=== PATIENT | female | born 1990 | race Caucasian/White ===

== ENCOUNTER 2019-11-09 15:26 | Emergency (ER) | payer BC, OTHER ==
[2019-11-09 15:31] VITALS: BMI 27.4
--- NOTE | 2019-11-09 15:32 | PDOC ---
Rapid Medical Evaluation Time Seen by Provider: 11/09/19 15:30 Medical Evaluation: 11/09/19 15:30 HPI: Heavy periods and menstural cramping no bleeding LMP 10/24/19 PE: No gross deficits ORDERS: Discharge Disposition - Diagnosis Uterine cramping - Referrals - Patient Instructions - Post Discharge Activity
[2019-11-09] MEDS ORDERED: KETOROLAC TROMETHAMINE 30 MG/1 ML VIAL IM ONE (16:57)
[2019-11-09] MEDS ORDERED: ACETAMINOPHEN 325 MG TABLET (FP) PO ONE (16:57)
--- NOTE | 2019-11-09 17:00 | PDOC ---
History of Present Illness - General Chief Complaint: Pain Stated Complaint: ABD PAIN Time Seen by Provider: 11/09/19 15:30 - History of Present Illness Initial Comments: The pt is a 29F w/ no reported PMH who presents for evaluation of 6-8 months of pelvic cramping. She states that it is almost every day, is worse with menstruation, and is not exacerbated by anything she can identify. She has tried taking Ibuprofen for her pain with some relief. LMP 10/27/19 She denies fever/chills, chest pain, trouble breathing, N/V/C/D, dysuria, hematuria, vaginal bleeding/discharge, or change in sensation. 11/09/19 16:55 Past History - Past Medical History Allergies/Adverse Reactions: Allergies Allergy/AdvReac Type Severity Reaction Status Date / Time No Known Allergies Allergy Verified 11/09/19 15:32 Home Medications: Ambulatory Orders Cetirizine HCl [Zyrtec -] 10 mg PO DAILY 11/09/19 Fluticasone Prop 0.05% Nasal [Flonase -] 1 - 2 spray NS DAILY 11/09/19 COPD: No - Reproductive History Is Patient Now?: No - Psycho Social/Smoking Cessation Hx Smoking History: Never smoked Review of Systems - Review of Systems Able to Perform ROS?: Yes Comments:: GENERAL/CONSTITUTIONAL: No fever or chills. No weakness HEAD, EYES, EARS, NOSE AND THROAT: No change in vision. No change in hearing. No sore throat CARDIOVASCULAR: No chest pain or shortness of breath RESPIRATORY: Denies cough, hemoptysis GASTROINTESTINAL: No nausea, vomiting, diarrhea or constipation GENITOURINARY: No dysuria, frequency, or change in urination MUSCULOSKELETAL: No joint or muscle swelling or pain. No neck or back pain SKIN: No rash NEUROLOGIC: No headache, vertigo, loss of consciousness, or change in strength/ sensation ENDOCRINE: No increased thirst. No abnormal weight change HEMATOLOGIC/LYMPHATIC: No anemia, easy bleeding, or history of blood clots ALLERGIC/IMMUNOLOGIC: No hives or skin allergy 11/09/19 16:58 Is the patient limited [place] proficient: No *Physical Exam - Vital Signs Last Vital Signs Temp Pulse Resp BP Pulse Ox 98 F 95 H 18 160/87 100 11/09/19 15:29 11/09/19 15:29 11/09/19 15:29 11/09/19 15:29 11/09/19 15:29 - Physical Exam GENERAL: Awake, alert, and oriented to person/place/time, in no acute distress HEAD: No signs of trauma, normocephalic, atraumatic EYES: PERRLA, EOMI, sclera anicteric, conjunctiva clear ENT: Hearing grossly normal, nares patent, oropharynx clear without exudates. Moist mucosa LUNGS: No distress, speaks in full sentences, clear to auscultation bilaterally HEART: Regular rate and rhythm, normal S1 and S2, no murmurs appreciated, peripheral pulses normal and equal bilaterally ABDOMEN: Soft, mild suprapubic TTP w/o rebound or guarding, normoactive bowel sounds. No guarding, no rebound EXTREMITIES: Normal inspection, Normal range of motion, no edema. No clubbing or cyanosis NEUROLOGICAL: Cranial nerves II through XII grossly intact. Normal speech, normal gait, no focal sensorimotor deficits SKIN: Warm, Dry 11/09/19 16:58 ED Treatment Course - ADDITIONAL ORDERS Additional order review: Laboratory Results 11/09/19 15:40 Urine HCG, Qual Negative - RADIOLOGY Radiology Studies Ordered: Category Date Time Status TRANSVAGINAL ULTRASOUND US [US] Stat Ultrasound 11/09/19 16:01 Ordered Radiograph Interpretation: US/TRANSVAGINAL ULTRASOUND US 1.7 cm right ovarian and 2.3 cm left ovarian cysts are seen without obvious intraluminal debris/blood. Note is also made of several subcentimeter follicles bilaterally. No Doppler evidence of ovarian torsion, sensitivity 70%. A very small amount of free fluid is noted within the cul-de-sac. The uterus appears unremarkable in overall size. A nonspecific subtle 2.2 cm slightly echogenic spherical structure is seen within the uterine fundus ventrally probably representing a leiomyoma on a statistical basis. Endometrial thickness appears unremarkable measuring 0.6 cm. Impression: As noted above. 11/09/19 17:16 Medical Decision Making - Medical Decision Making The pt is a 29F w/ no reported PMH who presents for evaluation of 6-8 months of pelvic cramping. ED Course Upreg neg TVUS Tylenol and Toradol for pain 11/09/19 16:59 TVUS w/ uterine fibroid and b/l ovarian cysts Results discussed with pt Plan for D/C w/ OBGYN f/u Discharge instructions and return precautions given Patient in agreement and verbalized understanding Dispo: Home 11/09/19 17:17 Discharge - Discharge Information Problems reviewed: Yes Clinical Impression/Diagnosis: Uterine cramping Condition: Stable Disposition: HOME - Admission No - Follow up/Referral Referrals: Radha Perry MD [Primary Care Provider] - Jose Campos MD [Staff Physician] - - Patient Discharge Instructions Patient Printed Discharge Instructions: DI for Uterine Fibroids Additional Instructions: You were seen for evaluation of pelvic cramping. Your ultrasound was notable for uterine fibroids and two ovarian cysts. Take the print out of your ultrasound report to your OBGYN appointment. Review the handout provided at discharge. For pain you may take Tylenol 650mg every 6 hours and Ibuprofen 600mg every 6-8 hours, alternating them each time. Return to the Emergency Department if you develop fevers, chest pain, trouble breathing, worsening pain, change in sensation, worsening symptoms, or any new/ concerning symptoms. - Post Discharge Activity
[2019-11-09] MEDS ORDERED: ACETAMINOPHEN 325 MG TABLET (FP) ONE (17:03)
[2019-11-09] MEDS ORDERED: KETOROLAC TROMETHAMINE 30 MG/1 ML VIAL ONE (17:03)
--- NOTE | 2019-11-09 17:16 | PDOC ---
Attending Attestation - Resident Resident Name: Gabriel Mauro - ED Attending Attestation I have performed the following: I have examined & evaluated the patient, The case was reviewed & discussed with the resident, I agree w/resident's findings & plan, Exceptions are as noted - HPI HPI: 11/09/19 17:08 Ms. Martell is a 29-year-old female presenting to the emergency department with a complaint of pelvic pain. Patient states she has had this pain daily for the past 6+ months. Pain is described as cramping, and feels like a period except it is present even when she is not having a period She is taking motrin daily with little relief Pt has also noted heavy vaginal bleeding (the first 3 days of her period are very heavy) She was seen at [facility] and was told that her uterus was enlarged and she needed an ultrasound Patient attempted to get [facility] follow-up but could not Patient came to the emergency department for assessment 11/09/19 17:18 - Physicial Exam PE: 11/09/19 17:16 GENERAL: The patient is in no acute distress. ENT: Ears normal, nares patent, oropharynx clear without exudates. Moist mucous membranes. NECK: Normal range of motion, supple LUNGS: Breath sounds equal, clear to auscultation bilaterally. No wheezes, and no crackles. HEART:Regular rate and rhythm, normal S1 and S2 without murmur, rub or gallop. ABDOMEN: Soft, lower abdominal tenderness to palpation PELVIC: per Dr Mauro EXTREMITIES: Normal range of motion, no edema. NEUROLOGICAL: Cranial nerves II through XII grossly intact. Normal speech. No focal neurological deficits. SKIN: Warm, Dry, normal turgor, no rashes or lesions noted. - Medical Decision Making 11/09/19 17:17 29-year-old female presenting to the emergency department with a complaint of pelvic pain Patient has a history of metromenorrhagia Last menstrual period end of September We will do: hCG Transvaginal ultrasound hCG negative Ultrasound revealed Normal size uterus, possible intramuscular fibroid, ovaries normal with small cysts no evidence of torsion We will plan to discharge home Follow-up with [facility]
[2019-11-09 17:33] VITALS: BP 121/74; PULSE 86; TEMP 97.4
== END 2019-11-09 17:37 | disposition home or self-care (01) ==
LOC: JER 15:26
PROC: 3E0233Z Introduction of Anti-inflammatory into Muscle, Percutaneous Approach (ICD-10-PCS; principal; 2019-11-09)
DX: D25.9 Leiomyoma of uterus, unspecified (principal); N83.201 Unspecified ovarian cyst, right side; N83.202 Unspecified ovarian cyst, left side
CPT/HCPCS: 76830-TC; 84703; 99282-25

== ENCOUNTER 2021-10-16 14:43 | Emergency (ER) | payer BC, OTHER ==
[2021-10-16 15:15] VITALS: BP 120/69; PULSE 97; TEMP 98; BMI 31.7
[2021-10-16] MEDS ORDERED: LACTATED RINGERS SOLUTION 1000 ML INFUS.BAG IV ONE (17:03)
[2021-10-16 18:49] LABS: BASO % 0.8 % (0-2.0); EOS % 1.4 % (0-4.5); HEMATOCRIT 31.3 % (32.4-45.2); HEMOGLOBIN 10.3 GM/dL (10.7-15.3); LYMPH % 20.6 % (8-40); MCH 28.8 pg (25.7-33.7); MEAN CELL VOLUME 87.4 fl (80-96); MEAN PLT VOLUME 8.2 fl (7.5-11.1); MONO % 6.4 % (3.8-10.2); NEUT % 70.8 % (42.8-82.8); PLATELET COUNT 292 10^3/uL (134-434); RBC 3.59 M/mm3 (3.60-5.2); RDW 13.1 % (11.6-15.6); WHITE BLOOD COUNT 13.1 K/mm3 (4.0-10.0)
[2021-10-16 18:55] LABS: EPI CELLS 22 /uL (0-25.1); HYALINE CASTS 2 /uL (0-3.1); PH,URINE 8.5 (5.0-8.0); URINE APPEARANCE CLEAR; URINE BACTERIA 820 /uL (0-1359); URINE BILIRUBIN NEGATIVE (NEGATIVE); URINE COLOR YELLOW; URINE GLUCOSE (UA) NEGATIVE (NEGATIVE); URINE KETONE NEGATIVE (NEGATIVE); URINE LEUK ESTERASE 1+ (NEGATIVE); URINE NITRITE NEGATIVE (NEGATIVE); URINE PROTEIN NEGATIVE (NEGATIVE); URINE RBC 38 /uL (0-23.9); URINE UROBILINOGEN 0.2 mg/dL (0.2-1.0); URINE WBC 5 /uL (0-25.8)
== END 2021-10-16 19:18 | disposition home or self-care (01) ==
LOC: JER 14:43
DX: O99.012 Anemia complicating pregnancy, second trimester (principal); Z3A.28 28 weeks gestation of pregnancy
CPT/HCPCS: 36415; 76815-TC; 81003; 84702; 85025; 87086; 87804; 99284-25; C9803; U0003; U0005

== ENCOUNTER 2021-12-26 19:05 | Inpatient (IN) | payer BC, OTHER ==
[2021-12-26 20:06] VITALS: BMI 34.3
[2021-12-26 20:18] LABS: BASO % 0.5 % (0-2.0); EOS % 1.1 % (0-4.5); LYMPH % 20.3 % (8-40); MCH 30.4 pg (25.7-33.7); MCHC 34.2 g/dl (32.0-36.0); MEAN CELL VOLUME 88.9 fl (80-96); MEAN PLT VOLUME 8.6 fl (7.5-11.1); MONO % 7.3 % (3.8-10.2); NEUT % 70.8 % (42.8-82.8); PLATELET COUNT 215 10^3/uL (134-434); RBC 3.94 M/mm3 (3.60-5.2); RDW 18.6 % (11.6-15.6)
[2021-12-26 20:27] LABS: INR 1.12 (0.83-1.09); PROTHROMBIN TIME (PATIENT) 12.9 SEC (9.7-13.0)
[2021-12-26 20:30] LABS: ACTIVATED PTT 29.2 SECONDS (25.2-36.5)
[2021-12-26 20:34] LABS: BLOOD UREA NITROGEN 7.1 mg/dL (7-18); CALCIUM 8.6 mg/dL (8.5-10.1)
[2021-12-26 20:39] LABS: CREATININE 0.6 mg/dL (0.55-1.3)
[2021-12-26] MEDS ORDERED: CITRIC ACID/SODIUM CITRATE 30 ML UNIT-DOSE CUP PO ONE (21:00)
[2021-12-26] MEDS ORDERED: ONDANSETRON 4 MG/2 ML VIAL IVPUSH PRN (21:01)
[2021-12-26] MEDS ORDERED: morphine SULFATE/PF 1 MG/2 ML (2cc Syringe - QUVA) EP ONE (21:01)
[2021-12-26] MEDS ORDERED: ceFAZolin SODIUM 1 GM VIAL ONE (21:06)
[2021-12-26] MEDS ORDERED: OXYTOCIN 10 UNITS/ML VIAL ONE (21:58)
[2021-12-26 22:36] LABS: CORD HCO3 24.9 mmHg (20-29); CORD PCO2 54.4 mmHg (30-78); CORD pH 7.279 (7.14-7.44)
[2021-12-26 22:39] LABS: CORD BASE EXCESS -2.7 mmol/L (0-2); CORD HCO3 22.7 mmHg (20-29); CORD PCO2 41.5 mmHg (30-78); CORD pH 7.356 (7.14-7.44)
[2021-12-26] MEDS ORDERED: ELECTROLYTE-148 SOLN 1,000 ML IV SCH (23:00)
[2021-12-26] MEDS ORDERED: IBUPROFEN 800 MG/8 ML IJ IVPB PRN (23:16)
[2021-12-26] MEDS ORDERED: SENNOSIDES/DOCUSATE COMBO (SENNA PLUS) TABLET (UD) PO PRN (23:16)
[2021-12-26] MEDS ORDERED: METHYLERGONOVINE MALEATE 0.2 MG/1 ML AMP IM PRN (23:16)
[2021-12-26] MEDS ORDERED: ACETAMINOPHEN 325 MG TABLET (FP) PO PRN (23:16)
[2021-12-26] MEDS ORDERED: OXYTOCIN 20 UNITS in 0.9% NS 20 UNIT/1,000 ML INFUS.BAG IV SCH (23:30)
[2021-12-27 08:05] LABS: BASO % 0.5 % (0-2.0); HEMATOCRIT 31.5 % (32.4-45.2); HEMOGLOBIN 10.3 GM/dL (10.7-15.3); MCH 29.2 pg (25.7-33.7); MCHC 32.8 g/dl (32.0-36.0); MEAN CELL VOLUME 89.2 fl (80-96); MEAN PLT VOLUME 8.9 fl (7.5-11.1); MONO % 6.8 % (3.8-10.2); NEUT % 77.7 % (42.8-82.8); PLATELET COUNT 192 10^3/uL (134-434); RBC 3.53 M/mm3 (3.60-5.2); RDW 18.5 % (11.6-15.6); WHITE BLOOD COUNT 13.1 K/mm3 (4.0-10.0)
[2021-12-27] MEDS: PRENATAL VITAMINS W/ FOLIC ACID TABLET (FP) PO SCH (09:49)
[2021-12-27] MEDS: ENOXAPARIN NA (PORCINE) 40 MG/0.4 ML DISP.SYRIN SQ SCH (09:49)
[2021-12-27] MEDS ORDERED: oxyCODONE HCL 5 MG TABLET PO PRN ×2 (11:16)
[2021-12-27] MEDS ORDERED: BISACODYL 10 MG SUPP.RECT RC PRN (23:16)
[2021-12-28] MEDS: SIMETHICONE 80 MG TAB.CHEW (FP) PO PRN ×4 (02:07→21:18)
[2021-12-28] MEDS: IBUPROFEN 600 MG TABLET (FP) PO PRN ×5 (02:07→21:18)
[2021-12-28] MEDS: ENOXAPARIN NA (PORCINE) 40 MG/0.4 ML DISP.SYRIN SQ SCH (09:20)
[2021-12-28] MEDS: PRENATAL VITAMINS W/ FOLIC ACID TABLET (FP) PO SCH (09:20)
[2021-12-29] MEDS: SIMETHICONE 80 MG TAB.CHEW (FP) PO PRN (01:42)
[2021-12-29] MEDS: IBUPROFEN 600 MG TABLET (FP) PO PRN ×2 (01:42→11:02)
[2021-12-29 09:26] LABS: BASO % 0.5 % (0-2.0); EOS % 3.9 % (0-4.5); HEMATOCRIT 33.5 % (32.4-45.2); LYMPH % 20.9 % (8-40); MCH 29.5 pg (25.7-33.7); MCHC 32.9 g/dl (32.0-36.0); MEAN CELL VOLUME 89.8 fl (80-96); MEAN PLT VOLUME 8.7 fl (7.5-11.1); MONO % 7.4 % (3.8-10.2); NEUT % 67.3 % (42.8-82.8); PLATELET COUNT 257 10^3/uL (134-434); RBC 3.74 M/mm3 (3.60-5.2); RDW 18.8 % (11.6-15.6); WHITE BLOOD COUNT 8.9 K/mm3 (4.0-10.0)
[2021-12-29] MEDS: PRENATAL VITAMINS W/ FOLIC ACID TABLET (FP) PO SCH (11:02)
[2021-12-29] MEDS: ENOXAPARIN NA (PORCINE) 40 MG/0.4 ML DISP.SYRIN SQ SCH (11:03)
[2021-12-29 11:25] VITALS: BP 112/77; PULSE 71; TEMP 97.7
== END 2021-12-29 14:28 | disposition home or self-care (01) | DRG 788 ==
LOC: JDEL 19:05 → JLDR 19:30 → J3W 12-27 00:45
PROVIDERS: ADMIT Obstetrics & Gynecology; ATTEND Obstetrics & Gynecology
PROC: 10D00Z1 Extraction of Products of Conception, Low, Open Approach (ICD-10-PCS; principal; 2021-12-26)
DX: O34.211 Maternal care for low transverse scar from previous cesarean delivery (principal); O69.2XX0 Labor and delivery complicated by other cord entanglement, with compression, not applicable or unspecified; Z3A.38 38 weeks gestation of pregnancy; Z37.0 Single live birth
CPT/HCPCS: 36415; 36600; 80048; 82803; 85025; 85610; 85730; 86780; 86850; 86900; 86901; 88307-TC; C9803; U0003; U0005